=== PATIENT | male | born 1980 | race Hispanic/Latino ===

== ENCOUNTER 2017-04-08 20:29 | Emergency (ER) | payer SELFPAY ==
[2017-04-08 20:30] VITALS: BMI 53.8
[2017-04-08 20:41] VITALS: RESP 20; TEMP 98.3
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
[2017-04-08 21:14] VITALS: BP 156/83; PULSE 91; O2SAT 97
== END 2017-04-08 21:18 | disposition home or self-care (01) ==
LOC: ED 20:29
DX: S00.93XA Contusion of unspecified part of head, initial encounter (principal); W18.39XA Other fall on same level, initial encounter; Y92.410 Unspecified street and highway as the place of occurrence of the external cause